=== PATIENT | female | born 1995 | race American Indian/Alaskan Native ===

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

== ENCOUNTER 2017-08-17 07:30 | Inpatient (IN) | payer MEDICAID, OTHER ==
[2017-08-17] MEDS ORDERED: ANCEF/STERILE WATER 2 GM/20 ML 2 GM/20 ML SYRINGE IV NR (10:00)
[2017-08-17] MEDS ORDERED: PITOCin/NS 20 UNIT/1000ML DRIP 20 UNITS/1,000 ML BAG IV SCH ×2 (10:00→16:00)
--- NOTE | 2017-08-17 10:02 | History and Physical Report ---
History of Present Illness Date of examination: 08/17/17 Date of admission: 08/17/17 09:25 Chief complaint: scheduled section History of present illness: Pt is a 22 year old -Citizen Of [place] MIGUELINA 08/24/17 at 39w0d presents for repeat section secondary to previous x 1. She reports good movement and denies vaginal bleeding or leakage of fluid. She has had care at [facility] since late entry at 24 wks complicated by late care, close conception. She is GBS negative. Past History Past Medical History: asthma, other Past Surgical History: section (August 2016 ) [employer] History: chlamydia, other (remote h/o PID ) Family/Genetic History: diabetes, hypertension Social history: no significant social history - Obstetrical History Expected Date of Delivery: 08/24/17 Actual Gestation: 39 Week(s) 0 Day(s) : 2 Para: 1 Hx # Term Pregnancies: 1 Number of Pregnancies: 0 Spontaneous Abortions: 0 Induced : 0 Number of Living Children: 1 Medications and Allergies Allergies Allergy/AdvReac Type Severity Reaction Status Date / Time ibuprofen Allergy Swelling Verified 12/26/16 14:26 Home Medications Medication Instructions Recorded Confirmed Last Taken Type Acetaminophen [Tylenol] 500 mg PO Q6HR #20 tablet 12/26/16 Unknown Rx Vit Calc,Iron,Folic 1 tab PO QDAY 12/26/16 12/26/16 Unknown History [ Vitamins] Active Meds: Active Medications Citric Acid/Sodium Citrate (Bicitra) 30 ml PO ONCE ONE Stop: 08/17/17 09:51 Famotidine (Pepcid) 20 mg IV ONCE ONE Stop: 08/17/17 09:51 Cefazolin Sodium (Ancef/Sterile Water 2 Gm/20 Ml) 2 gm in 20 mls @ 80 mls/hr IV PREOP NR PRN Reason: Protocol Lactated Ringer's (Lactated Ringers) 1,000 mls @ 2,250 mls/hr IV PREOP TED Stop: 08/18/17 10:27 Oxytocin/Sodium Chloride (Pitocin/Ns 20 Unit/1000ml Drip) 20 units in 1,000 mls @ 0 mls/hr IV TITR TED PRN Reason: As Directed Metoclopramide HCl (Reglan) 10 mg IV ONCE ONE Stop: 08/17/17 09:51 Review of Systems All systems: negative - Vital Signs Vital signs: Vital Signs Temp Pulse Resp BP Pulse Ox 98.6 F 86 16 101/61 100 08/17/17 09:54 08/17/17 09:54 08/17/17 09:54 08/17/17 09:54 08/17/17 09:54 Temp Pulse Resp BP Pulse Ox 98.6 F 86 16 101/61 100 08/17/17 09:54 08/17/17 09:54 08/17/17 09:54 08/17/17 09:54 08/17/17 09:54 - Physical Exam Breasts: Positive: deferred Cardiovascular: Regular rate Lungs: Positive: Clear to auscultation Abdomen: Positive: soft Genitourinary (Female): Positive: normal external genitalia Uterus: Positive: enlarged (gravid ) Extremities: Positive: normal - Obstetrical FHR: auscultation normal Uterine Contraction Monitor Mode: External Uterine Contraction Pattern: Irregular Uterine Tone Measurement Phase: Resting Results All other labs normal. Assessment and Plan A: IUP at 39w0d Previous x 1 Keloid scar P: Proceed with repeat section, scar excision and other indicated procedures.
[2017-08-17] MEDS ORDERED: PEPCID IV NR (10:30)
[2017-08-17] MEDS ORDERED: BICITRA PO NR (10:30)
[2017-08-17] MEDS ORDERED: REGLAN IV NR (10:30)
[2017-08-17 10:50] LABS: Basophils % (Auto) 0.3 % (0.0-1.8); Eosinophils % (Auto) 1.1 % (0.0-4.3); Hematocrit 37.6 % (30.3-42.9); Hemoglobin 12.3 gm/dl (10.1-14.3); Mean Corpuscular HGB Conc 33 % (30-34); Mean Corpuscular Hemoglobin 28 pg (28-32); Mean Corpuscular Volume 86 fl (79-97); Platelet Count 186 K/mm3 (140-440); Red Blood Count 4.38 M/mm3 (3.65-5.03)
[2017-08-17] MEDS: LACTATED RINGERS 1,000 ML IV SCH ×2 (11:02→11:04)
[2017-08-17] MEDS ORDERED: KENALOG-40 IM ONE ×2 (12:37→15:00)
[2017-08-17] MEDS ORDERED: NARCAN 0.4 MG/1 ML IV PRN ×2 (13:03→16:00)
[2017-08-17] MEDS ORDERED: MORPHINE IV PRN (13:03)
[2017-08-17] MEDS ORDERED: BENADRYL IV PRN (13:03)
[2017-08-17] MEDS ORDERED: ZOFRAN IV PRN (13:03)
[2017-08-17] MEDS ORDERED: PHENERGAN PR PRN (13:03)
--- NOTE | 2017-08-17 13:03 | Anesthesia Day of Surgery ---
Anesthesia Day of Surgery - Day of Surgery Patient Examined: Yes Patient H&P Reviewed: Yes Patient is NPO: Yes
--- NOTE | 2017-08-17 13:03 | Anesthesia Consultation ---
Anesthesia Consult and Med Hx Date of service: 08/17/17 - Airway Anesthetic Teeth Evaluation: Good ROM Head & Neck: Adequate Mental/Hyoid Distance: Adequate Mallampati Class: Class II Intubation Access Assessment: Probably Good - Pre-Operative Health Status ASA Pre-Surgery Classification: ASA2 Proposed Anesthetic Plan: Epidural, Spinal - Pulmonary Hx Asthma: No COPD: No Hx Pneumonia: No - Cardiovascular System Hx Hypertension: No - Central Nervous System Hx Seizures: No Hx Psychiatric Problems: No - Endocrine Hx Renal Disease: No Hx End Stage Renal Disease: No Hx Hypothyroidism: No Hx Hyperthyroidism: No - Hematic Hx Anemia: Yes (SOMETIMES TAKES IRON) Hx Sickle Cell Disease: No - Other Systems Hx Alcohol Use: No
[2017-08-17] MEDS ORDERED: TORADOL IV PRN ×2 (13:04→17:54)
[2017-08-17] MEDS ORDERED: MORPHINE ONE (13:34)
--- NOTE | 2017-08-17 13:34 | Procedure Note ---
OB Delivery Note - Delivery Date of Delivery: 08/17/17 Surgeon: JONE SALCEDO Estimated blood loss: other (600ml) - Section Preop diagnosis: repeat Postop diagnosis: same section procedure: section, repeat low transverse Disposition: PACU Complications: none - Infant A at 1 minute: 8 at 5 minutes: 9 Infant Gender: Female (6 lbs. 13 oz.)
--- NOTE | 2017-08-17 13:36 | Operative Report ---
Operative Report Operative Report: Date of surgery: 08/17/2017 Preoperative diagnosis: at 39+0 weeks; previous delivery Postoperative diagnosis: Same as above Procedure: Repeat low-transverse delivery; Revision of hypertrophic scar Surgeon: Carline Cortes M.D. Anesthesia: Regional Estimated blood loss: 600 mL Urine Output: 100 mL Findings: Liveborn female infant with Apgars of 8 and 9 weight 6 lbs. 13 oz. Indications: 22-year-old 001 at 39 weeks who presents for repeat delivery. Procedure: The patient was taken to the operating room and given regional anesthesia without complication. She was prepped and draped in a normal sterile fashion. A Pfannenstiel skin incision was made down to layer the fascia which was nicked in the midline extended laterally with the Bovie cautery. The superior aspect of the rectus fascia was grasped with Castro clamps x2 and the rectus muscles off sharply. This was done in inferior fashion as well. The rectus muscle midline and peritoneum entered bluntly. An Moises retractor was then inserted. A bladder blade was placed. The vesicouterine peritoneum was then entered sharply with Metzenbaum scissors. A bladder flap was created digitally. A low transverse uterine incision was then made and extended digitally. There was clear fluid upon entry into the uterine cavity. The head was delivered through the incision with fundal pressure. The cord was clamped and cut x2 and infant was passed off to pediatrics. The placenta was then manually extracted. The uterus was then exteriorized and cleared of clots and debris. The uterine incision was then closed in a running locked fashion with 0 Vicryl additional imbricating stitch was applied for 2 layer closure. The posterior cul-de-sac was then copiously irrigated. The uterus was replaced back into the abdomen and pelvis were the gutters were then irrigated. The Moises retractor was then removed. The peritoneum was then reapproximated with 3-0 Vicryl incorporating the rectus muscle. The keloid scar was excised with a scalpel. The fascia was then closed with 0 Vicryl in a running fashion. Subcutaneous adipose tissue was reapproximated with 2-0 Vicryl. The skin was then reapproximated with 3-0 Monocryl on a Rahul needle in a subcuticular fashion. 2 mL of Kenalog 40 mg were injected into the incision subcutaneously. Steri- Strips were placed across the incision and a Crede procedures performed at the end of the surgery. A pressure dressing was applied to the incision. The surgery productive of a liveborn female infant with Apgars of 8 and 9 weight 6 lbs. 13 oz. The patient was taken to the recovery room in stable condition. All sponge laps and needle counts correct x2.
[2017-08-17] MEDS ORDERED: WATER FOR IRRIG STERILE IR ONE (13:40)
[2017-08-17] MEDS ORDERED: NACL 0.9% IR ONE (13:40)
[2017-08-17] MEDS ORDERED: SODIUM CHLORIDE FLUSH SYRINGE 10 ML IV SCH (14:00)
[2017-08-17] MEDS ORDERED: NACL 0.9% 1000 ML 1,000 ML ONE (14:13)
[2017-08-17] MEDS ORDERED: SODIUM CHLORIDE FLUSH SYRINGE 10 ML IV PRN (16:00)
[2017-08-17] MEDS ORDERED: TYLENOL PO PRN (16:00)
[2017-08-17] MEDS ORDERED: LANSINOH TP PRN (16:00)
[2017-08-17] MEDS ORDERED: TUCKS PAD TP PRN (16:00)
[2017-08-17] MEDS ORDERED: MYLICON PO PRN (16:00)
[2017-08-17] MEDS: D5LR 1,000 ML IV SCH (21:30)
[2017-08-17] MEDS ORDERED: MILK OF MAGNESIA PO PRN (22:00)
[2017-08-17] MEDS: MORPHINE IV PRN (23:42)
[2017-08-18] MEDS ORDERED: BENADRYL IV PRN (00:05)
[2017-08-18] MEDS: MORPHINE IV PRN (04:10)
[2017-08-18] MEDS: D5LR 1,000 ML IV SCH (05:23)
[2017-08-18 06:21] LABS: Hematocrit 34.2 % (30.3-42.9); Hemoglobin 11.1 gm/dl (10.1-14.3)
--- NOTE | 2017-08-18 06:36 | Progress Note ---
Assessment and Plan O: VSS AF PP H/H: pending A: Stable POD #1 P: Continue PP orders Subjective - Subjective Date of service: 08/18/17 Patient reports: appetite normal, voiding normally, pain well controlled, ambulating normally, no flatus : doing well, nursing well Objective - Vital Signs Latest vital signs: Vital Signs Temp Pulse Resp BP BP Pulse Ox 08/18/17 00:00 98.0 F 72 20 99/53 08/17/17 20:05 98.0 F 78 20 102/53 08/17/17 16:15 97.8 F 64 18 105/52 96 08/17/17 16:05 97.9 F 87 16 120/54 96 08/17/17 16:00 70 15 118/51 97 08/17/17 15:59 79 17 109/56 98 08/17/17 15:54 90 18 97 08/17/17 15:53 91 H 16 97 08/17/17 15:52 94 H 08/17/17 15:18 66 15 98 08/17/17 15:16 69 16 97 08/17/17 15:12 69 19 98 08/17/17 15:06 22 98 08/17/17 15:05 97.9 F 70 18 106/47 98 08/17/17 10:28 104 H 80 L 08/17/17 09:54 98.6 F 86 16 101/61 100 Intake and Output 08/17/17 08/17/17 08/18/17 14:59 22:59 06:59 Intake Total 5093 566 1965.417 Output Total 650 600 Balance 1775 -200 625.417 Intake: IV 1775 200 985.417 D5lr 1,000 ml @ 125 mls/ 985.417 hr IV DIRECT TED Rx#: [id number] Lactated Ringers 1,000 ml 75 @ 2250 mls/hr IV PREOP TED Rx#:[id number] Oral 250 240 Output: Urine 650 600 Indwelling Catheter 300 600 Other: Total, Intake Amount 250 240 Total, Output Amount 300 600 # Voids Void 1 Weight 71.214 kg Estimated Blood Loss 600 Patient Weight 08/18/17 06:59 Weight 71.214 kg - Exam Breasts: Present: deferred Lungs: Present: Normal air movement Abdomen: Present: normal appearance, soft. Absent: distention, tenderness Vulva: both: normal Uterus: Present: normal, firm, fundal height below umbilicus (2 below U, ML). Absent: bogginess, tenderness Extremities: Present: normal Incision: Present: normal, dry, intact, dressed - Labs Labs: Abnormal lab results 08/17/17 Range/Units 10:25 [place] % (Auto) 8.5 H (0.0-7.3) % [place] # 0.9 H (0.0-0.8) K/mm3 Seg Neutrophils % 74.9 H (40.0-70.0) %
[2017-08-18] MEDS: PERCOCET 5/325 PO PRN ×2 (16:37→20:36)
[2017-08-19] MEDS: PERCOCET 5/325 PO PRN ×6 (01:54→22:05)
--- NOTE | 2017-08-19 16:23 | Progress Note ---
Assessment and Plan O: VSS AF PP H/H: 11.1/34.2 A Stable POD#2 P: D/C am Subjective - Subjective Date of service: 08/19/17 Patient reports: appetite normal, voiding normally, pain well controlled, flatus , ambulating normally : doing well Objective - Vital Signs Latest vital signs: Vital Signs Temp Pulse Resp BP BP Pulse Ox 08/19/17 08:49 98 F 78 18 116/65 08/19/17 03:18 98.2 F 97 H 20 107/49 97 08/18/17 17:30 98.8 F 77 20 117/57 117/57 98 Intake and Output 08/19/17 08/19/17 08/19/17 06:59 14:59 22:59 Intake Total 120 600 Balance 120 600 Intake: Oral 120 600 Other: Total, Intake Amount 120 480 # Voids Void 1 1 - Exam Breasts: Present: deferred Lungs: Present: Normal air movement Abdomen: Present: normal appearance, soft. Absent: distention, tenderness Vulva: both: normal Uterus: Present: normal, firm, fundal height at umbilicus. Absent: bogginess, tenderness Extremities: Present: normal Incision: Present: normal, dry, intact
--- NOTE | 2017-08-19 16:26 | Discharge Summary ---
Providers - Providers Date of Admission: 08/17/17 09:25 Date of discharge: 08/20/17 Attending physician: LIZY SARMIENTO Primary care physician: KARSON RM MD Hospitalization Reason for admission: IUP at term Delivery: Procedure: repeat low transverse Episiotomy: none Laceration: none Incision: normal, dry, intact Other procedures: none complications: none Discharge diagnosis: IUP at term delivered baby: female Condition at discharge: Good Disposition: DC-01 TO HOME OR SELFCARE Plan - Discharge Medications Prescriptions: Ibuprofen [Motrin] 800 mg PO Q8HR PRN #30 tablet PRN Reason: Pain oxyCODONE /ACETAMINOPHEN [Percocet 5/325] 1 tab PO Q6HR PRN #40 tablet PRN Reason: Pain - Provider Discharge Summary Activity: routine, no sex for 6 weeks, no heavy lifting 4 weeks, no strenuous exercise Instructions: routine Additional instructions: [] Smoking cessation referral if applicable(refer to patient education folder for contact #) [] Refer to [facility] Book[facility] Call your doctor immediately for: * Fever > 100.5 * Heavy vaginal bleeding ( >1 pad per hour) * Severe persistent headache * Shortness of breath * Reddened, hot, painful area to leg or breast * Drainage or odor from incision. * Keep incision clean and dry at all times and follow doctor's instructions regarding bathing/showering - Follow up plan Follow up: KARSON RM MD [Primary Care Provider] - 14 Days (RTO 2 weeks for incision check)
[2017-08-19 21:23] VITALS: BP 114/68
== END 2017-08-19 22:05 | disposition home or self-care (01) | DRG 766 ==
LOC: APU 09:25 → OB 16:42
PROVIDERS: ADMIT Obstetrics & Gynecology; ATTEND Obstetrics & Gynecology
PROC: 10D00Z1 Extraction of Products of Conception, Low, Open Approach (ICD-10-PCS; principal; 2017-08-17)
DX: O34.211 Maternal care for low transverse scar from previous cesarean delivery (principal); J45.909 Unspecified asthma, uncomplicated; O99.52 Diseases of the respiratory system complicating childbirth; Z3A.39 39 weeks gestation of pregnancy; Z37.0 Single live birth; Z88.8 Allergy status to other drugs, medicaments and biological substances
CPT/HCPCS: 36415; 85014; 85018; 85025; 86850; 86900; 86901; 99211; G0463; J0690; J1200; J2270; J2590; J2765; J3301; J7030; J7120; J7121